=== PATIENT | male | born 1940 | race Caucasian/White ===

== ENCOUNTER 2022-05-30 20:41 | Emergency (ER) | payer MEDICARE | END 2022-05-30 22:21 | disposition home or self-care (01) | LOC: CSHERS 20:41 | DX: J32.9 Chronic sinusitis, unspecified (principal); Z20.822 Contact with and (suspected) exposure to COVID-19; K21.9 Gastro-esophageal reflux disease without esophagitis; I10 Essential (primary) hypertension | CPT/HCPCS: 99283; U0003; U0005 ==

== ENCOUNTER 2022-08-07 09:32 | Day surgery (SDC) | payer MEDICARE ==
[2022-08-05 14:45] VITALS: BMI 28.3
[2022-08-07] MEDS ORDERED: PROPOFOL 60 ML ONE (11:25)
[2022-08-07] MEDS ORDERED: Lidocaine 1% PF 5 ML VIAL ONE (11:25)
== END 2022-08-07 12:37 | disposition home or self-care (01) ==
LOC: CSHSDC 09:32
PROVIDERS: ATTEND Internal Medicine Gastroenterology
PROC: 0DBH8ZZ Excision of Cecum, Via Natural or Artificial Opening Endoscopic (ICD-10-PCS; principal; 2022-08-07)
DX: D12.0 Benign neoplasm of cecum (principal); K64.8 Other hemorrhoids; I25.10 Atherosclerotic heart disease of native coronary artery without angina pectoris; I10 Essential (primary) hypertension; E78.5 Hyperlipidemia, unspecified; M19.90 Unspecified osteoarthritis, unspecified site; N40.0 Benign prostatic hyperplasia without lower urinary tract symptoms; Z88.8 Allergy status to other drugs, medicaments and biological substances; Z88.1 Allergy status to other antibiotic agents; Z91.041 Radiographic dye allergy status
CPT/HCPCS: 88305; J2704

== ENCOUNTER 2024-05-18 14:50 | Outpatient (CLI) | payer MEDICARE | END 2024-05-18 14:51 | disposition home or self-care (01) | LOC: CSHRAD 14:50 | PROVIDERS: ATTEND Nurse Practitioner | DX: J20.9 Acute bronchitis, unspecified (principal) | CPT/HCPCS: 71046 ==

== ENCOUNTER 2025-08-03 12:37 | Outpatient (CLI) | payer MEDICARE | END 2025-08-03 12:38 | disposition home or self-care (01) | LOC: CSHRAD 12:37 | PROVIDERS: ATTEND Internal Medicine | DX: J06.9 Acute upper respiratory infection, unspecified (principal); U07.1 COVID-19 | CPT/HCPCS: 71046 ==